=== PATIENT | female | born 1965 | race African-American/Black ===

== ENCOUNTER 2021-06-06 08:54 | Inpatient (IN) | payer MEDICAID ==
[~2021-06-06] VITALS: Ht 157.5 cm; Wt 124.7 kg
[~2021-06-06 08:54] MED LIST: ALBU2.5V13 IH; FERR325T6 PO; FURO40TA5 PO; GLIP10TA10 MT; HYDR25TA PO; LANTUSUD SUBCUT; LISI-186 PO; METF-416 MT; METO-411 PO; POTA10TA15 PO
[2021-06-06 09:43] LABS: BASOPHILS % 1.4 % (0.0-2.0); EOSINOPHILS % 2.9 % (0.0-5.0); HEMATOCRIT. 38.2 % (36.0-48.0); HEMOGLOBIN. 12.7 g/dL (12.0-16.0); LYMPHOCYTES % 22.9 % (20.0-50.0); MEAN CORPUSCULAR HEMOGLOBIN 31.1 pg (28.0-32.0); MEAN PLATELET VOLUME 8.6 fl (7.4-10.4); MONOCYTES % 10.8 % (2.0-8.0); PLATELET 417 x1000/uL (130-400); RED BLOOD CELL COUNT 4.06 mill/uL (4.2-5.4); RED CELL DISTRIBUTION WIDTH 14.5 % (11.6-14.6)
[2021-06-06 09:50] LABS: CHLORIDE 105 mEq/L (98-107)
[2021-06-06] MEDS ORDERED: MORPHINE SULFATE 4 MG/ML CPJ (NOT FOR IM USE) IV ONE (10:15)
[2021-06-06] MEDS ORDERED: ASPIRIN 325MG EC TABLET PO ONE (10:15)
[2021-06-06] MEDS ORDERED: ACETAMINOPHEN 325MG TABLET PO PRN (12:00)
[2021-06-06] MEDS ORDERED: ONDANSETRON HCL 4MG/2ML INJ IV PRN (12:00)
[2021-06-06] MEDS ORDERED: DEXTROSE 50% WATER 50ML SYRINGE IV PRN (12:00)
[2021-06-06] MEDS: BLOOD SUGAR DIAGNOSTIC STRIP TEST SCH ×3 (13:00→21:00)
[2021-06-06] MEDS ORDERED: POTASSIUM CHLORIDE 20MEQ TABLET SR PO NR (14:30)
[2021-06-06] MEDS ORDERED: KETOROLAC 15MG/ML VIAL IV PRN (15:00)
[2021-06-06] MEDS ORDERED: IPRATROPIUM/ALBUTEROL 0.5-3(2.5)MG/3ML NEB HHN PRN (15:00)
[2021-06-06] MEDS: INSULIN LISPRO 100 UNITS/ML SUBCUT SCH ×3 (20:00→21:00)
[2021-06-06 22:30] VITALS: BP 128/66
[2021-06-07] VITALS: BP 139/73
[2021-06-07 00:39] LABS: LDL CHOLESTEROL 118 mg/dL (5-100)
[2021-06-07 00:41] LABS: HDL CHOLESTEROL 55 mg/dL (40-59)
[2021-06-07 04:00] VITALS: BP 146/71
[2021-06-07] MEDS: BLOOD SUGAR DIAGNOSTIC STRIP TEST SCH ×2 (06:24→12:28)
[2021-06-07] MEDS: INSULIN LISPRO 100 UNITS/ML SUBCUT SCH ×2 (06:26→12:40)
[2021-06-07 07:34] LABS: BASOPHILS % 0.9 % (0.0-2.0); EOSINOPHILS % 2.2 % (0.0-5.0); HEMATOCRIT. 37.5 % (36.0-48.0); HEMOGLOBIN. 12.5 g/dL (12.0-16.0); LYMPHOCYTES % 26.5 % (20.0-50.0); MEAN CORPUSCULAR HEMOGLOBIN 31.3 pg (28.0-32.0); MEAN PLATELET VOLUME 8.9 fl (7.4-10.4); MONOCYTES % 10.3 % (2.0-8.0); NEUTROPHILS % 60.1 % (40.0-76.0); PLATELET 356 x1000/uL (130-400); RED BLOOD CELL COUNT 3.99 mill/uL (4.2-5.4); RED CELL DISTRIBUTION WIDTH 14.5 % (11.6-14.6)
[2021-06-07 07:42] LABS: CHLORIDE 103 mEq/L (98-107)
[2021-06-07 08:00] VITALS: BP 119/53
[2021-06-07] MEDS ORDERED: REGADENOSON 0.4 MG/5 ML IV NR (08:30)
[2021-06-07] MEDS ORDERED: ASPIRIN 81MG TABLET PO SCH (09:00)
[2021-06-07] MEDS ORDERED: POTASSIUM CHLORIDE 20MEQ TABLET SR PO NR (09:30)
[2021-06-07] MEDS ORDERED: REGADENOSON 0.4 MG/5 ML IV ONE (11:15)
[2021-06-07 12:00] VITALS: BP 146/68
[2021-06-07] MEDS ORDERED: ALBU18HF2 IH (12:35)
[2021-06-07] MEDS ORDERED: FUROSEMIDE 40MG/4ML VIAL IVP NR (12:45)
[2021-06-07] MEDS ORDERED: DOCUSATE SODIUM 100MG CAPSULE PO SCH (12:45)
[2021-06-07] MEDS ORDERED: FURO40TA5 PO (12:59)
[2021-06-07] MEDS ORDERED: LACTULOSE 20G/30ML UDC PO NR (13:45)
[2021-06-07] MEDS ORDERED: HYDR25TA PO (13:46)
[2021-06-07] MEDS ORDERED: POTA-9 MT (13:46)
[2021-06-07 15:33] LABS: *AMPHETAMINES SCREEN URINE NEGATIVE (NEGATIVE); CANNABINOID URINE SCREEN NEGATIVE (NEGATIVE); OPIATES URINE SCREEN PRESUMTIVE POSITIVE (NEGATIVE); PHENCYCLIDINE URINE SCREEN NEGATIVE (NEGATIVE)
[2021-06-07 15:34] LABS: *BARBITURATES SCREEN URINE NEGATIVE (NEGATIVE); *BENZODIAZEPINES SCREEN URINE NEGATIVE (NEGATIVE); *COCAINE SCREEN URINE NEGATIVE (NEGATIVE); METHADONE URINE SCREEN NEGATIVE (NEGATIVE)
[2021-06-07 16:00] VITALS: BP 145/80
[2021-06-07 16:03] VITALS: BP 145/80
[2021-06-07] MEDS ORDERED: ATORVASTATIN CALCIUM 10MG TABLET PO SCH (21:00)
[2021-06-08] MEDS ORDERED: ATOR10TA MT (11:15)
== END 2021-06-07 17:20 | disposition home or self-care (01) | DRG 203 ==
LOC: ER 08:54 → MICUSO 10:52 → 8WST 20:26
PROVIDERS: ADMIT Internal Medicine; ATTEND Internal Medicine
DX: M94.0 Chondrocostal junction syndrome [Tietze] (principal); E44.0 Moderate protein-calorie malnutrition; I11.0 Hypertensive heart disease with heart failure; I50.32 Chronic diastolic (congestive) heart failure; R07.81 Pleurodynia; E66.9 Obesity, unspecified; E11.9 Type 2 diabetes mellitus without complications; E78.5 Hyperlipidemia, unspecified; F17.210 Nicotine dependence, cigarettes, uncomplicated; I08.0 Rheumatic disorders of both mitral and aortic valves; Z20.822 Contact with and (suspected) exposure to COVID-19; J45.909 Unspecified asthma, uncomplicated; E87.6 Hypokalemia; Z82.49 Family history of ischemic heart disease and other diseases of the circulatory system; Z83.3 Family history of diabetes mellitus; Z68.43 Body mass index [BMI] 50.0-59.9, adult; Z79.899 Other long term (current) drug therapy; Z71.3 Dietary counseling and surveillance
CPT/HCPCS: 36415; 71045; 78452; 80048; 80053; 80061; 80305; 82962; 83735; 83880; 84484; 85025; 87426; 93005; 93017; 93306; 99285; A9500; J1940; J2270; J2785; U0003; U0005

== ENCOUNTER 2024-01-05 10:26 | Emergency (ER) | payer OTHER ==
[~2024-01-05] VITALS: Ht 167.6 cm; Wt 136.0 kg
[~2024-01-05 10:26] MED LIST changes: +ALBU18HF2 IH; +ASPI-1497 PO; +CHOL400D7 PO; -FERR325T6 PO; -FURO40TA5 PO; -GLIP10TA10 MT; +GLIP10TA10 PO; -HYDR25TA PO; -LISI-186 PO; -METF-416 MT; -METO-411 PO; +METO50CA PO; -POTA10TA15 PO
[2024-01-05 10:27] VITALS: O2SAT 99
[2024-01-05 10:54] LABS: CLARITY URINE CLEAR (CLEAR); COLOR URINE YELLOW (YELLOW); GLUCOSE URINE 2+ (NEGATIVE); KETONES URINE NEGATIVE (NEGATIVE); LEUKOCYTE ESTERASE URINE NEGATIVE (NEGATIVE); NITRITE URINE NEGATIVE (NEGATIVE); OCCULT BLOOD URINE NEGATIVE (NEGATIVE); PROTEIN URINE NEGATIVE (NEGATIVE); SPECIFIC GRAVITY URINE 1.014 (1.005-1.030); UROBILINOGEN URINE 0.2 E.U./dL (0.2-1.0)
[2024-01-05 11:05] LABS: RBC URINE 0-2 /hpf (0-2); WBC URINE 0-2 /hpf (0-2)
[2024-01-05 11:06] LABS: BACTERIA URINE 1+; SQUAMOUS EPITHELIAL CELL URINE 2+ /lpf (RARE/1+); YEAST URINE NONE SEEN
[2024-01-05 11:14] LABS: BASOPHILS % 0.6 % (0.0-2.0); EOSINOPHILS % 4.9 % (0.0-5.0); HEMATOCRIT. 38.8 % (36.0-48.0); LYMPHOCYTES % 34.1 % (20.0-50.0); MEAN CORPUSCULAR HEMOGLOBIN 30.7 pg (28.0-32.0); MEAN CORPUSCULAR HGB CONC 33.5 g/dL (31.0-37.0); MEAN CORPUSCULAR VOLUME 91.5 fL (81.0-99.0); MEAN PLATELET VOLUME 9.4 fl (7.4-10.4); MONOCYTES % 6.9 % (2.0-8.0); NEUTROPHILS % 53.5 % (40.0-76.0); PLATELET 259 x1000/uL (130-400); RED BLOOD CELL COUNT 4.24 mill/uL (4.2-5.4); RED CELL DISTRIBUTION WIDTH 15.1 % (11.6-14.6); WHITE BLOOD COUNT 5.7 x1000/uL (4.5-11.0)
[2024-01-05 11:18] LABS: ALANINE AMINOTRANSFERASE 19 IU/L (10-49); ALBUMIN 4.4 g/dL (3.2-4.8); ASPARTATE AMINOTRANSFERASE 17 IU/L (<34); BILIRUBIN TOTAL 0.5 mg/dL (0.1-1.0); CALCIUM 9.1 mg/dL (8.7-10.4); CARBON DIOXIDE 26 mEq/L (21-32); CHLORIDE 107 mEq/L (98-107); CREATININE 0.8 mg/dL (0.6-1.0); GLUCOSE 143 mg/dL (70-105); PROTEIN TOTAL 7.8 g/dL (6.0-8.3); SODIUM 140 mEq/L (136-145); TROPONIN I HIGH SENSITIVITY 5 ng/L (3.0-34); UREA NITROGEN BLOOD 14 mg/dL (9-23)
[2024-01-05] MEDS: ASPIRIN 81MG TABLET PO ONE (13:15)
[2024-01-05] MEDS: KETOROLAC 30MG/ML VIAL IM ONE (13:15)
[2024-01-05] MEDS ORDERED: DICL100G58 TP (15:00)
[2024-01-05] MEDS ORDERED: IBUP-2029 MT (15:00)
[2024-01-05 15:25] VITALS: BP 173/92; PULSE 75; RESP 18; TEMP 98.5
== END 2024-01-05 15:29 | disposition home or self-care (01) ==
LOC: ER 10:26
DX: S43.492A Other sprain of left shoulder joint, initial encounter (principal); R07.89 Other chest pain; M19.90 Unspecified osteoarthritis, unspecified site; J45.909 Unspecified asthma, uncomplicated; I50.9 Heart failure, unspecified; E11.9 Type 2 diabetes mellitus without complications; X58.XXXA Exposure to other specified factors, initial encounter; Y93.89 Activity, other specified; Y92.89 Other specified places as the place of occurrence of the external cause; Y99.8 Other external cause status
CPT/HCPCS: 80053; 81003; 81025; 85025; 84484; 36415; 71045; 73030; 73560; 93005; 96372; 99285; Z7610; J1885

== ENCOUNTER 2025-08-10 23:12 | Inpatient (IN) | payer MEDICAID, OTHER ==
[~2025-08-10] VITALS: Ht 167.6 cm; Wt 143.0 kg
[~2025-08-10 23:12] MED LIST changes: +DICL100G58 TP; -GLIP10TA10 PO; +GLIP10TA17 PO; +IBUP-1455 MT
[2025-08-10 23:23] VITALS: O2SAT 99
[2025-08-11] MEDS: ONDANSETRON HCL 4MG/2ML INJ IV ONE (00:01)
[2025-08-11] MEDS: KETOROLAC 15MG/ML VIAL IV ONE (00:02)
[2025-08-11 00:21] LABS: BASOPHILS % 0.7 % (0.0-2.0); EOSINOPHILS % 1.9 % (0.0-5.0); HEMATOCRIT. 39.3 % (36.0-48.0); HEMOGLOBIN. 13.0 g/dL (12.0-16.0); LYMPHOCYTES % 13.5 % (20.0-50.0); MEAN PLATELET VOLUME 10.5 fl (7.4-10.4); MONOCYTES % 7.4 % (2.0-8.0); NEUTROPHILS % 76.5 % (40.0-76.0); PLATELET 223 x1000/uL (130-400); RED BLOOD CELL COUNT 4.17 mill/uL (4.2-5.4); RED CELL DISTRIBUTION WIDTH 14.7 % (11.6-14.6)
[2025-08-11 00:28] LABS: CREATININE 0.8 mg/dL (0.6-1.0); UREA NITROGEN BLOOD 11 mg/dL (9-23)
[2025-08-11] MEDS ORDERED: NITR0.4T49 SL (00:44)
[2025-08-11] MEDS ORDERED: SACU1TAB4 MT (00:44)
[2025-08-11] MEDS ORDERED: TRAM50TA3 MT (00:44)
[2025-08-11] MEDS ORDERED: CARV6.2548 MT (00:44)
[2025-08-11] MEDS ORDERED: HYDR25TA78 MT (00:44)
[2025-08-11] MEDS ORDERED: FURO-151 MT (00:44)
[2025-08-11] MEDS ORDERED: OMEP40CA20 MT (00:44)
[2025-08-11] MEDS ORDERED: [UNRECOGNIZED DRUG - CODE] MT (00:44)
[2025-08-11] MEDS ORDERED: ATOR20TA65 MT (00:44)
[2025-08-11] MEDS: HYDRALAZINE 20MG/ML VIAL IV ONE (02:34)
[2025-08-11 02:45] LABS: CLARITY URINE CLEAR (CLEAR); COLOR URINE YELLOW (YELLOW); GLUCOSE URINE 3+ (NEGATIVE); KETONES URINE TRACE (NEGATIVE); LEUKOCYTE ESTERASE URINE NEGATIVE (NEGATIVE); NITRITE URINE NEGATIVE (NEGATIVE); OCCULT BLOOD URINE NEGATIVE (NEGATIVE); PH URINE 5.5 (4.5-8.0); PROTEIN URINE 1+ (NEGATIVE); SPECIFIC GRAVITY URINE 1.036 (1.005-1.030); UROBILINOGEN URINE 0.2 E.U./dL (0.2-1.0)
[2025-08-11 03:02] LABS: RBC URINE NONE SEEN /hpf (0-2); WBC URINE NONE SEEN /hpf (0-2); YEAST URINE NONE SEEN
[2025-08-11 03:03] LABS: BACTERIA URINE NONE SEEN; SQUAMOUS EPITHELIAL CELL URINE FEW /lpf (RARE/1+)
[2025-08-11 03:50] VITALS: BP 116/84; PULSE 116; RESP 16; TEMP 38.4196
[2025-08-11] MEDS ORDERED: DEXTROSE 50% WATER 50ML SYRINGE IV PRN (05:30)
[2025-08-11] MEDS ORDERED: IPRATROPIUM/ALBUTEROL 0.5-3(2.5)MG/3ML NEB HHN PRN (05:30)
[2025-08-11] MEDS ORDERED: NALOXONE HCL 0.4MG/ML VIAL IV PRN (06:00)
[2025-08-11] MEDS: HYDROCODONE/ACETAMINOPHEN 5/325MG TABLET PO PRN (06:06)
[2025-08-11] MEDS: NITROGLYCERIN 0.4MG TABLET SL SL PRN (06:06)
[2025-08-11] MEDS: HYDRALAZINE HCL 25MG TABLET PO SCH (06:07)
[2025-08-11] MEDS: PANTOPRAZOLE 40MG DR TABLET PO SCH (06:08)
[2025-08-11] MEDS: BLOOD SUGAR DIAGNOSTIC STRIP TEST SCH (06:40)
[2025-08-11 08:00] VITALS: BP 155/75; PULSE 75; RESP 20; TEMP 36.4; O2SAT 100
[2025-08-11 09:16] LABS: BASOPHILS % 0.3 % (0.0-2.0); EOSINOPHILS % 0.8 % (0.0-5.0); HEMATOCRIT. 38.8 % (36.0-48.0); HEMOGLOBIN. 12.8 g/dL (12.0-16.0); LYMPHOCYTES % 11.8 % (20.0-50.0); MEAN PLATELET VOLUME 10.5 fl (7.4-10.4); MONOCYTES % 10.0 % (2.0-8.0); NEUTROPHILS % 77.1 % (40.0-76.0); PLATELET 203 x1000/uL (130-400); RED BLOOD CELL COUNT 4.15 mill/uL (4.2-5.4); RED CELL DISTRIBUTION WIDTH 14.8 % (11.6-14.6)
[2025-08-11 09:26] LABS: CREATININE 0.8 mg/dL (0.6-1.0); TRIGLYCERIDE 89 mg/dL (0-150); UREA NITROGEN BLOOD 10 mg/dL (9-23)
[2025-08-11] MEDS: LOSARTAN 50 MG TABLET PO SCH (09:26)
[2025-08-11] MEDS: FUROSEMIDE 40MG TABLET PO SCH (09:26)
[2025-08-11] MEDS: ASPIRIN 81MG TABLET PO SCH (09:26)
[2025-08-11] MEDS: ENOXAPARIN 40MG/0.4ML SYR SUBCUT SCH (09:26)
[2025-08-11 09:27] LABS: LDL CHOLESTEROL 82 mg/dL (5-100)
[2025-08-11] MEDS: INSULIN LISPRO 100 UNITS/ML SUBCUT SCH (09:28)
[2025-08-11] MEDS: CARVEDILOL 6.25 MG TABLET PO SCH (09:30)
[2025-08-11] MEDS: HYDROCODONE/ACETAMINOPHEN 10/325MG TABLET PO PRN (09:47)
[2025-08-11 12:00] VITALS: BP 135/87; PULSE 103; RESP 20; TEMP 36.1; O2SAT 100
[2025-08-11] MEDS ORDERED: MORPHINE SULFATE 4 MG/ML INJ (FOR IV/IM USE) IV NR (12:00)
[2025-08-11] MEDS: MORPHINE SULFATE 10 MG/ML INJ (NOT FOR IM USE) IV NR (12:27)
[2025-08-11] MEDS: INSULIN GLARGINE 100 UNITS/ML SUBCUT NR (14:32)
[2025-08-11 16:00] VITALS: BP 153/80; PULSE 100; RESP 17; TEMP 36; O2SAT 100
[2025-08-11] MEDS: OXYCODONE HCL/ACETAMINOPHEN 5/325MG TABLET PO PRN (17:42)
[2025-08-11 20:00] VITALS: BP_SYST 117; BP_SYST 153; BP_DIAS 76; BP_DIAS 89; PULSE 107; PULSE 99; RESP 18; TEMP 36.5; TEMP 37.6; O2SAT 95; O2SAT 98
[2025-08-11] MEDS: ATORVASTATIN CALCIUM 20MG TABLET PO SCH (21:03)
[2025-08-11] MEDS: INSULIN GLARGINE 100 UNITS/ML SUBCUT SCH (22:00)
[2025-08-12] VITALS (7 sets, daily range): BP systolic 110–153; BP diastolic 60–94; PULSE 82–128; RESP 18–20; TEMP 36.3–37.1; O2SAT 83–95
[2025-08-12] MEDS: KETOROLAC 30MG/ML VIAL IV PRN (05:37)
[2025-08-12] MEDS: CARVEDILOL 12.5MG TABLET PO SCH (22:03)
[2025-08-13] VITALS: BP 115/50; PULSE 113; RESP 18; TEMP 37.4; O2SAT 96
[2025-08-13 04:00] VITALS: BP 129/66; PULSE 117; RESP 18; TEMP 36.4; O2SAT 93
[2025-08-13 08:00] VITALS: BP 121/84; PULSE 104; RESP 19; TEMP 36.2; O2SAT 97
[2025-08-13] MEDS ORDERED: CARVEDILOL 12.5MG TABLET PO SCH (09:00)
[2025-08-13 12:00] VITALS: BP_SYST 104; BP_SYST 109; BP_DIAS 62; PULSE 85; RESP 18; TEMP 36.4; O2SAT 98
[2025-08-13 16:00] VITALS: BP 152/73; PULSE 100; RESP 18; TEMP 36.5; O2SAT 97
[2025-08-13 20:00] VITALS: BP 106/58; PULSE 100; RESP 18; TEMP 36.6; O2SAT 97
[2025-08-14] VITALS: BP 110/62; PULSE 99; RESP 18; TEMP 36.4; O2SAT 98
[2025-08-14 04:00] VITALS: BP 118/65; PULSE 103; RESP 17; TEMP 36.2; O2SAT 97
[2025-08-14 07:13] LABS: BASOPHILS % 0.2 % (0.0-2.0); EOSINOPHILS % 1.3 % (0.0-5.0); HEMATOCRIT. 33.7 % (36.0-48.0); HEMOGLOBIN. 11.1 g/dL (12.0-16.0); LYMPHOCYTES % 8.4 % (20.0-50.0); MEAN PLATELET VOLUME 10.2 fl (7.4-10.4); MONOCYTES % 12.3 % (2.0-8.0); NEUTROPHILS % 77.8 % (40.0-76.0); PLATELET 163 x1000/uL (130-400); RED BLOOD CELL COUNT 3.60 mill/uL (4.2-5.4); RED CELL DISTRIBUTION WIDTH 14.7 % (11.6-14.6)
[2025-08-14 07:38] LABS: CREATININE 1.2 mg/dL (0.6-1.0); UREA NITROGEN BLOOD 23.0 mg/dL (9-23)
[2025-08-14 08:00] VITALS: BP 117/66; PULSE 106; RESP 19; TEMP 36.6; O2SAT 98
[2025-08-14 12:00] VITALS: BP 118/69; PULSE 102; RESP 18; TEMP 36.5; O2SAT 98
[2025-08-14 20:00] VITALS: BP 126/75; PULSE 80; RESP 17; TEMP 36.4; O2SAT 96
[2025-08-15] VITALS: BP_SYST 115; BP_SYST 119; BP_DIAS 62; BP_DIAS 69; PULSE 76; PULSE 79; RESP 18; RESP 19; TEMP 36.3; TEMP 36.4; O2SAT 98
[2025-08-15] MEDS: POLYETHYLENE GLYCOL 3350 (17GM) 1 DOSE PACK PO SCH ×2 (01:04→09:00)
[2025-08-15] MEDS: CEFTRIAXONE 1GM/50ML 50 ML IV NR (01:04)
[2025-08-15 04:00] VITALS: BP 115/62; PULSE 76; RESP 18; TEMP 36.4; O2SAT 98
[2025-08-15 07:32] LABS: HEMATOCRIT. 35.4 % (36.0-48.0); HEMOGLOBIN. 11.5 g/dL (12.0-16.0); MEAN PLATELET VOLUME 10.7 fl (7.4-10.4); PLATELET 214 x1000/uL (130-400); RED BLOOD CELL COUNT 3.77 mill/uL (4.2-5.4); RED CELL DISTRIBUTION WIDTH 15.5 % (11.6-14.6)
[2025-08-15 07:49] LABS: CREATININE 0.9 mg/dL (0.6-1.0); UREA NITROGEN BLOOD 19 mg/dL (9-23)
[2025-08-15 08:00] VITALS: BP 138/72; PULSE 18; RESP 18; TEMP 36; O2SAT 100
[2025-08-15] MEDS: SENNOSIDES/DOCUSATE SOD 8.6/50MG TABLET PO PRN (11:40)
[2025-08-15 12:00] VITALS: BP 155/71; PULSE 97; RESP 18; TEMP 35.9; O2SAT 100
[2025-08-15] MEDS ORDERED: LIDOCAINE HCL 1% 10 MG/ML 10ML VIAL ONE (13:38)
[2025-08-15 16:00] VITALS: BP 154/85; PULSE 87; RESP 20; TEMP 36.5; O2SAT 100
[2025-08-15 16:30] LABS: EOSINOPHILS % MANUAL 2.0 % (0.0-5.0); LYMPHOCYTES % MANUAL 17.0 % (20.0-60.0); MONOCYTES % MANUAL 12.0 % (2.0-8.0); NEUTROPHILS % MANUAL 69.0 % (45.0-75.0); PLATELET ESTIMATE NORMAL
[2025-08-15] MEDS: VANCOMYCIN 2GM PMX (XELLIA) 400 ML IV NR (16:53)
[2025-08-15] MEDS: CEFTRIAXONE 2GM/50ML 50 ML IV SCH (16:53)
[2025-08-15 19:26] LABS: INR 1.1
[2025-08-15 20:00] VITALS: BP 133/61; PULSE 96; RESP 20; TEMP 36.6; O2SAT 94
[2025-08-15] MEDS ORDERED: CEFTRIAXONE 1GM/50ML 50 ML IV SCH (20:00)
[2025-08-15] MEDS: INSULIN GLARGINE 100 UNITS/ML SUBCUT SCH (21:25)
[2025-08-15] MEDS ORDERED: VANCOMYCIN 1GM/200ML PMX (BAXTER) IV SCH (22:00)
[2025-08-16] VITALS: BP 122/70; PULSE 95; RESP 18; TEMP 36.7; O2SAT 95
[2025-08-16] MEDS: MORPHINE SULFATE 10 MG/ML INJ (NOT FOR IM USE) IV SCH (01:00)
[2025-08-16 04:00] VITALS: PULSE 95; RESP 20; TEMP 36.3; O2SAT 97
[2025-08-16] MEDS: MORPHINE SULFATE 10 MG/ML INJ (NOT FOR IM USE) IV PRN (04:13)
[2025-08-16] MEDS: VANCOMYCIN 1GM/200ML PMX (BAXTER) IV SCH (06:11)
[2025-08-16 08:00] VITALS: BP 181/81; PULSE 97; RESP 17; TEMP 36.5; O2SAT 97
[2025-08-16 09:18] LABS: BASOPHILS % 0.3 % (0.0-2.0); EOSINOPHILS % 1.4 % (0.0-5.0); HEMATOCRIT. 35.8 % (36.0-48.0); HEMOGLOBIN. 11.7 g/dL (12.0-16.0); LYMPHOCYTES % 10.3 % (20.0-50.0); MEAN PLATELET VOLUME 10.5 fl (7.4-10.4); MONOCYTES % 13.4 % (2.0-8.0); NEUTROPHILS % 74.6 % (40.0-76.0); PLATELET 234 x1000/uL (130-400); RED BLOOD CELL COUNT 3.78 mill/uL (4.2-5.4); RED CELL DISTRIBUTION WIDTH 15.6 % (11.6-14.6)
[2025-08-16 09:46] LABS: CREATININE 1.1 mg/dL (0.6-1.0); UREA NITROGEN BLOOD 18 mg/dL (9-23)
[2025-08-16 12:00] VITALS: BP 172/97; PULSE 100; RESP 17; TEMP 35.9; O2SAT 100
[2025-08-16 16:00] VITALS: BP 147/80; PULSE 73; RESP 19; TEMP 36.3; O2SAT 100
[2025-08-16] MEDS: OXYCODONE HCL 10MG TABLET PO PRN (17:24)
[2025-08-16] MEDS: DOCUSATE SODIUM 250MG CAPSULE PO NR (17:24)
[2025-08-16 20:00] VITALS: BP 139/80; PULSE 90; RESP 18; TEMP 36.7; O2SAT 99
[2025-08-17] VITALS (35 sets, daily range): BP systolic 111–177; BP diastolic 60–95; PULSE 72–96; RESP 8–19; TEMP 36.2–36.9; O2SAT 85–100
[2025-08-17] MEDS ORDERED: GENTAMICIN SULF 40MG/ML 2ML VIAL ONE (07:03)
[2025-08-17] MEDS ORDERED: THROMBIN (BOVINE) 5000 UNITS/VIAL TOP ONE (07:03)
[2025-08-17] MEDS ORDERED: LIDOCAINE HCL/EPINEPHRINE 1%-EPI 1:100,000 20ML VIAL ONE (07:03)
[2025-08-17 07:46] LABS: CREATININE 0.8 mg/dL (0.6-1.0); UREA NITROGEN BLOOD 12 mg/dL (9-23)
[2025-08-17 08:10] LABS: BASOPHILS % 0.3 % (0.0-2.0); EOSINOPHILS % 2.1 % (0.0-5.0); HEMATOCRIT. 33.9 % (36.0-48.0); HEMOGLOBIN. 11.2 g/dL (12.0-16.0); LYMPHOCYTES % 13.6 % (20.0-50.0); MEAN PLATELET VOLUME 9.8 fl (7.4-10.4); MONOCYTES % 10.5 % (2.0-8.0); NEUTROPHILS % 73.5 % (40.0-76.0); PLATELET 261 x1000/uL (130-400); RED BLOOD CELL COUNT 3.62 mill/uL (4.2-5.4); RED CELL DISTRIBUTION WIDTH 15.5 % (11.6-14.6)
[2025-08-17] MEDS ORDERED: HYDRALAZINE 20MG/ML VIAL IV PRN ×3 (09:00→13:00)
[2025-08-17] MEDS ORDERED: LIDOCAINE HCL 1% 10 MG/ML 10ML VIAL ONE (09:23)
[2025-08-17] MEDS ORDERED: PROPOFOL 200MG/20ML VIAL IV ONE ×2 (09:23→11:30)
[2025-08-17] MEDS ORDERED: SUCCINYLCHOLINE CHLORIDE 200MG/10ML IV ONE (09:28)
[2025-08-17] MEDS ORDERED: ACETAMINOPHEN 1000MG/100ML 100 ML IV ONE (10:22)
[2025-08-17] MEDS ORDERED: ROCURONIUM BROMIDE 10MG/ML VIAL 5ML IV ONE (10:22)
[2025-08-17] MEDS ORDERED: FAMOTIDINE 20MG/2ML VIAL IV ONE (10:23)
[2025-08-17] MEDS ORDERED: KETAMINE HCL 50 MG/ML 10ML ONE (10:23)
[2025-08-17] MEDS ORDERED: FENTANYL CITRATE/PF 50MCG/ML 2ML VIAL ONE (10:26)
[2025-08-17] MEDS ORDERED: MIDAZOLAM HCL 2 MG/2 ML VIAL ONE (10:26)
[2025-08-17] MEDS ORDERED: ALBUTEROL 6.7GM HFA INHALER ONE (10:55)
[2025-08-17] MEDS ORDERED: GLYCOPYRROLATE 0.2 MG/ML 2ML VIAL ONE (11:06)
[2025-08-17] MEDS ORDERED: NICARDIPINE 40MG/200ML PREMIX 200 ML IV ONE (12:19)
[2025-08-17] MEDS ORDERED: HYDROMORPHONE HCL/PF 1MG/ML INJ ONE (12:44)
[2025-08-17] MEDS ORDERED: HYDROMORPHONE HCL/PF 1MG/ML INJ IV PRN (13:00)
[2025-08-17] MEDS ORDERED: ONDANSETRON HCL 4MG/2ML INJ IV PRN (13:00)
[2025-08-17] MEDS ORDERED: NALOXONE HCL 0.4MG/ML VIAL IV PRN (13:45)
[2025-08-17] MEDS ORDERED: CEFAZOLIN SODIUM 1000MG/VIAL IV SCH (14:00)
[2025-08-17] MEDS: DEXT 5%/LACTATED RINGERS 1,000 ML IV SCH (14:57)
[2025-08-17] MEDS: CEFAZOLIN 1000MG PREMIX 50ML IV SCH (14:58)
[2025-08-17] MEDS: KCL 20MEQ/100ML PREMIX 100 ML IV SCH (14:58)
[2025-08-17] MEDS: HYDROMORPHONE HCL/PF 1MG/ML INJ IV PRN (15:29)
[2025-08-17] MEDS ORDERED: CEFTRIAXONE 2GM/50ML 50 ML IV SCH (17:00)
[2025-08-17] MEDS: NICARDIPINE 100 MG in SODIUM CHLORIDE 0.9% 60 ML IV PRN (17:43)
[2025-08-17 20:19] LABS: BASOPHILS % 0.2 % (0.0-2.0); EOSINOPHILS % 0.1 % (0.0-5.0); HEMATOCRIT. 33.4 % (36.0-48.0); HEMOGLOBIN. 10.7 g/dL (12.0-16.0); LYMPHOCYTES % 8.0 % (20.0-50.0); MEAN PLATELET VOLUME 9.4 fl (7.4-10.4); MONOCYTES % 3.6 % (2.0-8.0); NEUTROPHILS % 88.1 % (40.0-76.0); PLATELET 260 x1000/uL (130-400); RED BLOOD CELL COUNT 3.51 mill/uL (4.2-5.4); RED CELL DISTRIBUTION WIDTH 16.1 % (11.6-14.6)
[2025-08-17 20:35] LABS: CREATININE 1.0 mg/dL (0.6-1.0); UREA NITROGEN BLOOD 14 mg/dL (9-23)
[2025-08-17] MEDS: SENNOSIDES/DOCUSATE SOD 8.6/50MG TABLET PO SCH (21:34)
[2025-08-18] VITALS (60 sets, daily range): BP systolic 80–175; BP diastolic 43–108; PULSE 69–96; RESP 6–31; TEMP 36.7–37.8; O2SAT 87–100
[2025-08-18 06:01] LABS: PLATELET 273 x1000/uL (130-400); RED BLOOD CELL COUNT 3.14 mill/uL (4.2-5.4); RED CELL DISTRIBUTION WIDTH 15.8 % (11.6-14.6)
[2025-08-18 06:22] LABS: CREATININE 0.8 mg/dL (0.6-1.0); UREA NITROGEN BLOOD 11 mg/dL (9-23)
[2025-08-18] MEDS: GADOTERATE MEGLUMINE 5 MMOL/10 ML VIAL IV ONE (08:26)
[2025-08-18] MEDS: POLYETHYLENE GLYCOL 3350 (17GM) 1 DOSE PACK PO SCH (09:00)
[2025-08-18] MEDS: HYDRALAZINE 20MG/ML VIAL IV SCH (11:28)
[2025-08-18] MEDS: HYDRALAZINE HCL 50MG TABLET PO SCH (16:16)
[2025-08-18] MEDS: LOSARTAN 50 MG TABLET PO SCH (20:45)
[2025-08-19 00:24] VITALS: BP 121/53; PULSE 85; RESP 20; TEMP 36.4; O2SAT 98
[2025-08-19 04:29] VITALS: BP 148/77; PULSE 79; RESP 19; TEMP 36.3; O2SAT 99
[2025-08-19 07:15] LABS: BASOPHILS % 0.6 % (0.0-2.0); EOSINOPHILS % 2.6 % (0.0-5.0); HEMATOCRIT. 32.0 % (36.0-48.0); HEMOGLOBIN. 10.6 g/dL (12.0-16.0); LYMPHOCYTES % 18.6 % (20.0-50.0); MEAN PLATELET VOLUME 9.7 fl (7.4-10.4); MONOCYTES % 9.5 % (2.0-8.0); NEUTROPHILS % 68.7 % (40.0-76.0); PLATELET 291 x1000/uL (130-400); RED BLOOD CELL COUNT 3.42 mill/uL (4.2-5.4); RED CELL DISTRIBUTION WIDTH 16.0 % (11.6-14.6)
[2025-08-19 07:23] LABS: CREATININE 0.8 mg/dL (0.6-1.0)
[2025-08-19 07:24] LABS: UREA NITROGEN BLOOD 12 mg/dL (9-23)
[2025-08-19 08:00] VITALS: BP 161/59; PULSE 83; RESP 20; TEMP 36.3; O2SAT 96
[2025-08-19 12:00] VITALS: BP 146/59; PULSE 85; RESP 16; TEMP 36.7; O2SAT 97
[2025-08-19] MEDS: KCL 20MEQ/100ML PREMIX 100 ML IV SCH (14:55)
[2025-08-19 16:00] VITALS: BP 142/59; PULSE 85; RESP 20; TEMP 36.2; O2SAT 96
[2025-08-19 20:18] VITALS: BP 122/62; PULSE 87; RESP 18; TEMP 36.2; O2SAT 96
[2025-08-20 00:09] VITALS: BP 123/57; PULSE 87; RESP 19; TEMP 36.2; O2SAT 98
[2025-08-20 04:09] VITALS: BP 130/58; PULSE 82; RESP 19; TEMP 36.9; O2SAT 96
[2025-08-20 06:45] LABS: BASOPHILS % 0.6 % (0.0-2.0); EOSINOPHILS % 3.5 % (0.0-5.0); HEMATOCRIT. 30.9 % (36.0-48.0); HEMOGLOBIN. 10.3 g/dL (12.0-16.0); LYMPHOCYTES % 19.5 % (20.0-50.0); MEAN PLATELET VOLUME 9.6 fl (7.4-10.4); MONOCYTES % 8.4 % (2.0-8.0); NEUTROPHILS % 68.0 % (40.0-76.0); PLATELET 301 x1000/uL (130-400); RED BLOOD CELL COUNT 3.31 mill/uL (4.2-5.4); RED CELL DISTRIBUTION WIDTH 15.3 % (11.6-14.6)
[2025-08-20 07:30] LABS: CREATININE 0.7 mg/dL (0.6-1.0); UREA NITROGEN BLOOD 8 mg/dL (9-23)
[2025-08-20 07:31] LABS: ASPARTATE AMINOTRANSFERASE 19 IU/L (<34)
[2025-08-20 07:32] LABS: BILIRUBIN TOTAL 1.0 mg/dL (0.1-1.0); PROTEIN TOTAL 6.4 g/dL (6.0-8.3)
[2025-08-20 08:00] VITALS: BP 135/53; PULSE 87; RESP 20; TEMP 37.2; O2SAT 97
[2025-08-20 16:00] VITALS: BP 128/79; PULSE 88; RESP 18; TEMP 36.8; O2SAT 97
[2025-08-20 20:00] VITALS: BP 145/55; PULSE 87; RESP 19; TEMP 36.4; O2SAT 96
[2025-08-21] VITALS: BP 131/64; PULSE 83; RESP 21; TEMP 36.9; O2SAT 96
[2025-08-21 04:00] VITALS: BP 131/75; PULSE 98; RESP 19; TEMP 36.6; O2SAT 98
[2025-08-21 06:39] LABS: CREATININE 0.8 mg/dL (0.6-1.0)
[2025-08-21 06:40] LABS: BASOPHILS % 0.7 % (0.0-2.0); EOSINOPHILS % 3.1 % (0.0-5.0); HEMATOCRIT. 30.9 % (36.0-48.0); HEMOGLOBIN. 10.5 g/dL (12.0-16.0); LYMPHOCYTES % 18.3 % (20.0-50.0); MEAN PLATELET VOLUME 9.5 fl (7.4-10.4); MONOCYTES % 5.2 % (2.0-8.0); NEUTROPHILS % 72.7 % (40.0-76.0); PLATELET 305 x1000/uL (130-400); RED BLOOD CELL COUNT 3.32 mill/uL (4.2-5.4); RED CELL DISTRIBUTION WIDTH 15.1 % (11.6-14.6); UREA NITROGEN BLOOD 9 mg/dL (9-23)
[2025-08-21 06:41] LABS: ASPARTATE AMINOTRANSFERASE 18 IU/L (<34)
[2025-08-21 06:42] LABS: BILIRUBIN TOTAL 1.6 mg/dL (0.1-1.0); PROTEIN TOTAL 6.6 g/dL (6.0-8.3)
[2025-08-21 08:00] VITALS: BP 146/66; PULSE 84; RESP 18; TEMP 37; O2SAT 97
[2025-08-21 12:00] VITALS: BP 129/86; PULSE 88; RESP 20; TEMP 36.9; O2SAT 100
[2025-08-21 16:00] VITALS: BP 116/76; PULSE 86; RESP 20; TEMP 36.7; O2SAT 96
[2025-08-21] MEDS: POTASSIUM CHLORIDE 20MEQ TABLET SR PO SCH (17:16)
[2025-08-21 20:00] VITALS: BP 122/81; PULSE 81; RESP 20; TEMP 36.9; O2SAT 97
[2025-08-21] MEDS: OXYCODONE HCL 10MG TABLET PO PRN (22:15)
[2025-08-22] VITALS (7 sets, daily range): BP systolic 119–143; BP diastolic 61–91; PULSE 78–93; RESP 17–20; TEMP 36.3–36.7; O2SAT 95–99
[2025-08-22 14:16] LABS: BASOPHILS % 0.8 % (0.0-2.0); EOSINOPHILS % 2.6 % (0.0-5.0); HEMATOCRIT. 33.6 % (36.0-48.0); HEMOGLOBIN. 11.0 g/dL (12.0-16.0); LYMPHOCYTES % 18.3 % (20.0-50.0); MEAN PLATELET VOLUME 9.6 fl (7.4-10.4); MONOCYTES % 4.1 % (2.0-8.0); NEUTROPHILS % 74.2 % (40.0-76.0); PLATELET 367 x1000/uL (130-400); RED BLOOD CELL COUNT 3.58 mill/uL (4.2-5.4); RED CELL DISTRIBUTION WIDTH 15.3 % (11.6-14.6)
[2025-08-22 14:26] LABS: CREATININE 0.9 mg/dL (0.6-1.0); UREA NITROGEN BLOOD 9 mg/dL (9-23)
[2025-08-22 14:28] LABS: ASPARTATE AMINOTRANSFERASE 20 IU/L (<34)
[2025-08-22 14:29] LABS: BILIRUBIN TOTAL 1.2 mg/dL (0.1-1.0); PROTEIN TOTAL 7.4 g/dL (6.0-8.3)
[2025-08-22] MEDS ORDERED: HYDR-4009 MT (17:54)
[2025-08-22] MEDS: POTASSIUM CHLORIDE 20MEQ TABLET SR PO SCH (21:10)
[2025-08-23] VITALS: BP 97/49; PULSE 91; RESP 18; TEMP 37.2; O2SAT 97
[2025-08-23 04:00] VITALS: BP 106/51; PULSE 78; RESP 20; TEMP 36.9; O2SAT 98
[2025-08-23 08:00] VITALS: BP 128/62; PULSE 75; RESP 17; TEMP 36.6; O2SAT 95
[2025-08-23 09:42] LABS: BASOPHILS % 0.5 % (0.0-2.0); EOSINOPHILS % 2.7 % (0.0-5.0); HEMATOCRIT. 31.5 % (36.0-48.0); HEMOGLOBIN. 10.1 g/dL (12.0-16.0); LYMPHOCYTES % 18.5 % (20.0-50.0); MEAN PLATELET VOLUME 9.6 fl (7.4-10.4); MONOCYTES % 5.1 % (2.0-8.0); NEUTROPHILS % 73.2 % (40.0-76.0); PLATELET 348 x1000/uL (130-400); RED BLOOD CELL COUNT 3.30 mill/uL (4.2-5.4); RED CELL DISTRIBUTION WIDTH 15.1 % (11.6-14.6)
[2025-08-23 10:13] LABS: CREATININE 1.2 mg/dL (0.6-1.0)
[2025-08-23 10:14] LABS: UREA NITROGEN BLOOD 14 mg/dL (9-23)
[2025-08-23 10:15] LABS: ASPARTATE AMINOTRANSFERASE 18 IU/L (<34)
[2025-08-23 10:16] LABS: BILIRUBIN TOTAL 1.0 mg/dL (0.1-1.0); PROTEIN TOTAL 7.0 g/dL (6.0-8.3)
[2025-08-23] MEDS ORDERED: LIDOCAINE HCL 1% 10 MG/ML 10ML VIAL ONE (10:28)
[2025-08-23 12:00] VITALS: BP 100/55; PULSE 85; RESP 18; TEMP 36.4; O2SAT 96
[2025-08-23 15:16] VITALS: BP 100/55; PULSE 108; RESP 16; TEMP 97.6
[2025-08-23 16:00] VITALS: BP 104/53; PULSE 85; RESP 18; TEMP 36.6; O2SAT 95
== END 2025-08-23 17:40 | disposition home health service (06) | DRG 710 ==
LOC: ER 23:12 → 7EST 08-11 02:23 → EDBEDREQDT 08-11 02:25 → EDBEDREQ 08-11 02:25 → EDBEDREQTM 08-11 02:25 → ENRESERV 08-11 02:43 → MICUSO 08-17 11:35 → 7WST 08-18 14:00
PROVIDERS: ADMIT Internal Medicine; ATTEND Internal Medicine
PROC: 02HV33Z Insertion of Infusion Device into Superior Vena Cava, Percutaneous Approach (ICD-10-PCS; 2025-08-15)
PROC: B548ZZA Ultrasonography of Superior Vena Cava, Guidance (ICD-10-PCS; 2025-08-15)
PROC: 4A11X4G Monitoring of Peripheral Nervous Electrical Activity, Intraoperative, External Approach (ICD-10-PCS; principal; 2025-08-23)
PROC: 00NY0ZZ Release Lumbar Spinal Cord, Open Approach (ICD-10-PCS; 2025-08-23)
PROC: 02HV33Z Insertion of Infusion Device into Superior Vena Cava, Percutaneous Approach (ICD-10-PCS; 2025-08-23)
PROC: B5181ZA Fluoroscopy of Superior Vena Cava using Low Osmolar Contrast, Guidance (ICD-10-PCS; 2025-08-23)
PROC: B548ZZA Ultrasonography of Superior Vena Cava, Guidance (ICD-10-PCS; 2025-08-23)
DX: A40.8 Other streptococcal sepsis (principal); G06.1 Intraspinal abscess and granuloma; J96.01 Acute respiratory failure with hypoxia; I50.33 Acute on chronic diastolic (congestive) heart failure; S34.109A Unspecified injury to unspecified level of lumbar spinal cord, initial encounter; I11.0 Hypertensive heart disease with heart failure; N17.9 Acute kidney failure, unspecified; Z68.43 Body mass index [BMI] 50.0-59.9, adult; M48.56XA Collapsed vertebra, not elsewhere classified, lumbar region, initial encounter for fracture; E11.65 Type 2 diabetes mellitus with hyperglycemia; D64.9 Anemia, unspecified; G82.20 Paraplegia, unspecified; E66.01 Morbid (severe) obesity due to excess calories; M54.16 Radiculopathy, lumbar region; G47.33 Obstructive sleep apnea (adult) (pediatric); M41.9 Scoliosis, unspecified; M48.061 Spinal stenosis, lumbar region without neurogenic claudication; E88.2 Lipomatosis, not elsewhere classified; M43.16 Spondylolisthesis, lumbar region; X58.XXXA Exposure to other specified factors, initial encounter; J45.909 Unspecified asthma, uncomplicated; G89.29 Other chronic pain; E78.5 Hyperlipidemia, unspecified; M25.78 Osteophyte, vertebrae; Z79.4 Long term (current) use of insulin; Z79.899 Other long term (current) drug therapy; Z83.3 Family history of diabetes mellitus; Z87.891 Personal history of nicotine dependence; Z79.82 Long term (current) use of aspirin; Z71.3 Dietary counseling and surveillance; Y93.89 Activity, other specified; Y92.89 Other specified places as the place of occurrence of the external cause; Y99.8 Other external cause status
CPT/HCPCS: 36415; 36573; 71045; 72100; 72148; 74176; 76000; 77001; 80048; 80053; 80061; 81003; 82962; 83036; 83605; 84145; 85025; 85027; 85651; 86850; 86900; 87077; 87186; 93005; 93306; 95863; 95925; 95926; 95928; 95929; 96374; 96375; 97110; 97162; 97164; 97166; 97530; 99285; A4606; A9577; C1725; J0330; J0360; J0690; J0696; J1171; J1308; J1580; J1650; J1815; J1885; J2003; J2004; J2250; J2270; J2405; J2704; J3010; J3373; J3480; J3490; J7050; J7121; J0131